=== PATIENT | female | born 1985 | race Caucasian/White ===

== ENCOUNTER 2018-12-31 13:30 | Inpatient (IN) | payer SELFPAY ==
[2018-12-31 14:03] VITALS: BMI 25.4
[2018-12-31 14:17] LABS: Absolute Lymphocyte Count 1.69 X10^3/ul (0.83-4.51); Absolute Neutrophil Count 13.5 X10^3/uL (2.0-7.7); Basophil# 0.02 X10^3/uL; Basophil% 0.1 % (0-1); Eosinophil# 0.05 X10^3/uL; Eosinophils% 0.3 % (0-5); Hematocrit 37.6 % (37-47); Hemoglobin 12.7 g/dl (12.0-15.0); Lymphocyte # 1.69 X10^3/ul (4.0); Lymphocyte % 10.3 % (19-41); Mean Corp Hgb Conc 33.8 g/gl (32-36); Mean Corpuscular Hgb 31.3 pg (27.0-32.0); Mean Corpuscular Volume 92.6 fL (81-99); Mean Platelet Vol. 9.7 fl (6.2-12.0); Monocyte# 1.12 X10^3/uL; Monocyte% 6.8 % (0-10); Neutrophil # 13.54 X10^3/uL (2.7-7.7); Neutrophil % 82.3 % (47-70); Platelet Count 221 K/mm3 (150-450); RBC Distribution Width CV 13.4 % (11.6-14.6); RBC Distribution Width SD 45.3 fl (35.1-43.9); Red Blood Count 4.06 M/mm3 (4.2-5.4); White Blood Count 16.5 K/mm3 (4.4-11.0)
[2018-12-31 14:18] LABS: POSITIVE COUNT NO; POSITIVE DIFFERENTIAL NO; POSITIVE MORPHOLOGY NO
[2018-12-31] MEDS: Lactated Ringers 1,000 ML 50 ML IV (14:19)
[2018-12-31] MEDS: Oxytocin 30 units/NS 500 ml 30 UNITS/500 ML IV.SOLN IV (15:03)
[2018-12-31 15:06] LABS: Rubella IgG 399.3 IU/mL
[2018-12-31 15:46] LABS: HIV - WCH Non-Reactive (Nonreactive); Hepatitis B Surface Antigen Non-Reactive (Nonreactive); Hepatitis C Antibody Non-Reactive (Nonreactive)
[2018-12-31] MEDS: Oxytocin 30 units/NS 500 ml 30 UNITS/500 ML IV.SOLN 334 UNITS IV (16:22)
--- NOTE | 2018-12-31 16:35 | HP.PCM_ITS ---
- Problem List (1) Active labor at term Status: Acute (2) Prolonged labor Status: Acute History Date of Admission: 12/31/18 Final SY: 12/23/18 Final SY Source: US >20 weeks Gestational age: 41 Weeks and 1 Days History of this : This is a 33 year-old, at 41 weeks gestational age presents IAL from care by the computer systems security analyst darrion carrero at a nearby birthing center. she has been 7 cm for most of the day and her labor has stalled, her water had broke at 8 am this morning clear fluid. she is in need of labor augmentation Allergies No Known Allergies Allergy (Verified 12/31/18 14:02) Smoking Status: Never smoker Number of Fetus(es): 1 Heart Tracin moderate variability reactive no decelerations category I tracing [place]: q 15-20 History Past Pregnancies: Past Pregnancies 8 preivous term healthy deliveries Labs: Mom's Labs & Results 12/31/18 12/31/18 12/31/18 13:55 13:55 13:55 WBC 16.5 H RBC 4.06 L Hgb 12.7 Hct 37.6 MCV 92.6 MCH 31.3 MCHC 33.8 RDW 13.4 RDW Differential 45.3 H Plt Count 221 MPV 9.7 Immature Gran % (Auto) 0.200 Neut % (Auto) 82.3 H Lymph % (Auto) 10.3 L [place] % (Auto) 6.8 Eos % (Auto) 0.3 Baso % (Auto) 0.1 Absolute Neuts (auto) 13.5 H Absolute Lymphs (auto) 1.69 Total Counted Not Reportable RPR Hep Bs Antigen Hepatitis C Antibody HIV 1&2 Antibody Rubella IgG Antibody 399.3 Group B Strep DNA Specimen Comment Blood Type O NEGATIVE Antibody Screen NEGATIVE 12/31/18 12/31/18 12/31/18 13:55 13:55 14:45 WBC RBC Hgb Hct MCV MCH MCHC RDW RDW Differential Plt Count MPV Immature Gran % (Auto) Neut % (Auto) Lymph % (Auto) [place] % (Auto) Eos % (Auto) Baso % (Auto) Absolute Neuts (auto) Absolute Lymphs (auto) Total Counted RPR Pending Hep Bs Antigen Non-Reactive Hepatitis C Antibody Non-Reactive HIV 1&2 Antibody Non-Reactive Rubella IgG Antibody Group B Strep DNA Pending Specimen Comment Pending Blood Type Antibody Screen Course Did the patient receive Yes care? Labs Blood Type: O RH: NEGATIVE Rubella status Immune HbSAg Negative Date Done: 12/31/18 Chlamydia Not Done Gonorrhea Not Done HIV/AIDS Non-Reactive Current Obstetrical History Gestational Diabetes No Incompetent Cervix No Infertility No IUGR No Macrosomia No Hypertension/Pre-eclampsia No Placenta Previa/Abruption No PTL/PROM No Uterine anomaly No Oligohydramnios No Polyhydramnios No Multiple gestation No Past Medical History Asthma No Diabetes No Hypertension No Heart disease No Mitral valve prolapse No Neurologic/Seizure disorder/ No Migraines Kidney disease No Liver disease No Varicosities Yes: legs/feet Clotting disorders/Hx of DVT No Thyroid Dysfunction No Other medical diseases No Psychiatric disorders No Major trauma No Abnormal PAP smear No Sleep apnea No Mammogram in the last 2 years No Social History Marital Status: Alleged father Rodrigo Walker Hx Smoking No Smoking Status Never smoker Expected Delivery Method: Spontaneous Vaginal Review of Systems Constitutional: Denies: Fever, Malaise Eyes: Denies: Blurred vision, Vision Change HEENT: Denies: Head Aches, Visual Changes Cardiovascular: Denies: Chest Pain, Palpitations Respiratory: Denies: Cough, Shortness of Breath, Wheezing Gastrointestinal: Denies: Abdominal Pain, Diarrhea, Nausea, Vomiting Genitourinary: Denies: Dysuria, Hematuria Musculoskeletal: Denies: Joint Pain, Muscle pain Skin: Denies: Lesions, Rash Neurological: Denies: Blurred vision, Focal weakness, Headaches Psychiatric: Denies: Anxiety, Depression Endocrine: Denies: Heat/ Cold Intolerance Hematologic/ Lymphatic: Denies: Easy Bruising, Easy Bleeding Physical Exam General: Alert, Cooperative, No apparent distress HEENT: Atraumatic, Normocephalic. Negative for: Thyromegaly, Lymphadenopathy Cardiovascular: Regular rate Lungs: Normal air movement Abdomen: Soft, Non Tender, Gravid Neurological: Deep Tendon Reflexes 2+/4 and Symmetrical, Neuro grossly intact. Negative for: Clonus OFFICE EQUIPMENT TECHNICIAN: Normal external genitalia. Negative for: Vulvar lesions Estimated gestational size: Appropriate for gestational size Presentation: Cephalic Cervix Dilation (cm): 6.5 Assessment/Plan All Active Problems Active labor at term (Acute) Prolonged labor (Acute) This is a 33 year-old, at 41 weeks gestational age presents IAL with prolonged labor plan pitocin for augmentation, forebag ruptured clear fluid.
--- NOTE | 2018-12-31 16:40 | PCM.OPRPT ---
Problem List (1) Active labor at term Status: Acute (2) Prolonged labor Status: Acute Report of Operation Date of Procedure: 12/31/18 Pre-Operative Diagnosis: prolonged labor Post-Operative Diagnosis: same Vaginal Delivery Maternal Presentation: - - prolonged labor 33-year-old G 12 P8 at 41 weeks 1 day presents as a referral from a linoleum layer for prolonged labor. Patient has been in labor since yesterday and had an arrest of dilation at 7 cm. Patient's water broke at 8:00 this morning denies any fevers abdominal pain or foul-smelling discharge. Amniotic Membrane Rupture Type: Spontaneous at home Amniotic Fluid Description: Clear Final SY: 12/23/18 Gestational age: 41 Weeks and 1 Days Date of Procedure: 12/31/18 Pre-Operative Diagnosis: ial Post-Operative Diagnosis: same Surgery/ Procedure Performed: Spontaneous Vaginal Delivery Type of Anesthesia: None Description of Procedure: Patient began pushing and delivered the head in the MIKEL presentation. The head was delivered atraumatically and a loose nuchal cord ?1 was identified and easily reduced over the infant's head. The anterior and posterior shoulders delivered without complication followed by the rest of the and the infant was placed on the maternal abdomen. Delayed cord clamping was employed for approximately 60 seconds. Cord was clamped and cut and gentle traction was applied to the cord and the placenta delivered spontaneously immediately following it was noted to be intact with three-vessel cord. The perineum and vagina were inspected and noted to have no laceration. EBL was 100 cc. Patient and tolerated delivery well. Presentation: MIKEL Placental Delivery Description: Spontaneous Placenta Disposition: [facility] Cord Entanglement: Around neck x 1, loose Estimated Blood Loss: 100 Episiotomy Description: None Laceration: None Medications given after delivery: IV Pitocin Complications: None
[2018-12-31] MEDS: Oxytocin 30 units/NS 500 ml 30 UNITS/500 ML IV.SOLN 167 UNITS IV (16:52)
[2018-12-31 18:01] LABS: Group B Strep DNA By PCR Negative (Negative); Internal Control PASS; Probe Check PASS; Specimen Processing Control PASS
[2018-12-31] MEDS: 0.9% Saline Lock 10 ML Syringe IV (18:38)
[2018-12-31 20:20] VITALS: BP 117/67; PULSE 84; RESP 18; TEMP 37.2
[2018-12-31 23:46] VITALS: BP 111/65; PULSE 72; RESP 16; TEMP 36.8
[2019-01-01 04:00] VITALS: BP 97/60; PULSE 76; RESP 16; TEMP 37.1
[2019-01-01 08:15] VITALS: BP 103/66; PULSE 77; RESP 16; TEMP 36.6
--- NOTE | 2019-01-01 08:43 | PN.OBGYN_ITS ---
Patient Problems: Active and Suspected Problems Active labor at term (Acute) Prolonged labor (Acute) Subjective: doing well no complaints pain controlled no CP SOB N V ambulating well tolerating po lochia moderate, going well - Physical Exam General: Alert, Oriented x3 Abdomen: Soft, Non Tender, Non-Distended, - - FF below U Vital Signs Temp Pulse Resp BP 97.9 F 77 16 103/66 01/01/19 08:15 01/01/19 08:15 01/01/19 08:15 01/01/19 08:15 Oxygen Delivery Method Room Air Weight: 148 lb 9.465 oz Body Mass Index (BMI) 25.4 Intake and Output for Last 24 Hours 12/30/18 12/31/18 01/01/19 23:59 23:59 23:59 Intake Total 819 / 819 Output Total 650 / 650 Balance 169 / 169 Laboratory Tests Past 24 Hrs 12/31/18 12/31/18 12/31/18 13:55 13:55 13:55 WBC 16.5 H RBC 4.06 L Hgb 12.7 Hct 37.6 MCV 92.6 MCH 31.3 MCHC 33.8 RDW 13.4 RDW Differential 45.3 H Plt Count 221 MPV 9.7 Immature Gran % (Auto) 0.200 Neut % (Auto) 82.3 H Lymph % (Auto) 10.3 L [place] % (Auto) 6.8 Eos % (Auto) 0.3 Baso % (Auto) 0.1 Absolute Neuts (auto) 13.5 H Absolute Lymphs (auto) 1.69 Total Counted Not Reportable RPR Hep Bs Antigen Hepatitis C Antibody HIV 1&2 Antibody Rubella IgG Antibody 399.3 Group B Strep DNA Specimen Comment Blood Type O NEGATIVE Antibody Screen NEGATIVE Screen Baby's Blood Type Baby's DIANE 12/31/18 12/31/18 12/31/18 13:55 13:55 14:45 WBC RBC Hgb Hct MCV MCH MCHC RDW RDW Differential Plt Count MPV Immature Gran % (Auto) Neut % (Auto) Lymph % (Auto) [place] % (Auto) Eos % (Auto) Baso % (Auto) Absolute Neuts (auto) Absolute Lymphs (auto) Total Counted RPR Pending Hep Bs Antigen Non-Reactive Hepatitis C Antibody Non-Reactive HIV 1&2 Antibody Non-Reactive Rubella IgG Antibody Group B Strep DNA Negative Specimen Comment Not Reportable Blood Type Antibody Screen Screen Baby's Blood Type Baby's DIANE 12/31/18 17:50 WBC RBC Hgb Hct MCV MCH MCHC RDW RDW Differential Plt Count MPV Immature Gran % (Auto) Neut % (Auto) Lymph % (Auto) [place] % (Auto) Eos % (Auto) Baso % (Auto) Absolute Neuts (auto) Absolute Lymphs (auto) Total Counted RPR Hep Bs Antigen Hepatitis C Antibody HIV 1&2 Antibody Rubella IgG Antibody Group B Strep DNA Specimen Comment Blood Type Antibody Screen Screen NEGATIVE Baby's Blood Type O POSITIVE Baby's DIANE NEGATIVE Medical Necessity - Tobacco Use Smoking Status: Never smoker Assessment/Plan All Active Problems Active labor at term (Acute) Prolonged labor (Acute) s/p PPD # 1 1. routine post delivery care 2. breast feeding- support given 3. rh negative-need rhogam 4. rubella immune 5. home today
--- NOTE | 2019-01-01 08:45 | DCINST_ITS ---
Additional Instructions: If you experience any of the following, contact your healthcare provider. * Bleeding that soaks a pad every hour for 2 hours * Fever 100.4 or higher * Unrelieved incision or abdominal pain * Swelling, redness, discharge or bleeding from your incision or episiotomy site * Your incision begins to separate * Problems urinating (including inability to urinate or burning while urinating). * Visual changes * Severe headache * Flu-like symptoms * Pain or redness in one of both of your breasts * Pain, warmth, tenderness or swelling in your legs, especially the calf area * Frequent nausea and vomiting * Symptoms of depression or anxiety If you experience any of the following, call 911 or go to the nearest Emergency Room. * Chest pain * Problems breathing * Seizure activity * Partial or complete paralysis of a body part, slurred speech, weakness or drooping of the face, or a sudden inability to walk or hold your balance Allergies/Adverse Reactions: Allergies No Known Allergies Allergy (Verified 12/31/18 14:02) Test Results: Test results from this visit will be discussed in further detail at your follow- up appointment, if applicable.
--- NOTE | 2019-01-01 08:45 | PCM.DCVAG ---
Additional Instructions: If you experience any of the following, contact your healthcare provider. Bleeding that soaks a pad every hour for 2 hours Fever 100.4 or higher Unrelieved incision or abdominal pain Swelling, redness, discharge or bleeding from your incision or episiotomy site Your incision begins to separate Problems urinating (including inability to urinate or burning while urinating). Visual changes Severe headache Flu-like symptoms Pain or redness in one of both of your breasts Pain, warmth, tenderness or swelling in your legs, especially the calf area Frequent nausea and vomiting Symptoms of depression or anxiety If you experience any of the following, call 911 or go to the nearest Emergency Room. Chest pain Problems breathing Seizure activity Partial or complete paralysis of a body part, slurred speech, weakness or drooping of the face, or a sudden inability to walk or hold your balance Allergies/Adverse Reactions: Allergies No Known Allergies Allergy (Verified 12/31/18 14:02) Test Results: Test results from this visit will be discussed in further detail at your follow-up appointment, if applicable.
[2019-01-01 12:20] VITALS: BP 100/61; PULSE 81; TEMP 37.1
[2019-01-03 01:18] LABS: Rapid Plasmin Reagin (RPR) NONREACTIVE (NONREACTIVE)
== END 2019-01-01 12:30 | disposition home or self-care (01) | DRG 807 ==
PROVIDERS: Admitting Provider Obstetrics & Gynecology; Referring Provider Obstetrics & Gynecology; Visit Provider Obstetrics & Gynecology
DX: O63.9 Long labor, unspecified (principal); O48.0 Post-term pregnancy; O69.81X0 Labor and delivery complicated by cord around neck, without compression, not applicable or unspecified; Z3A.41 41 weeks gestation of pregnancy; Z37.0 Single live birth
CPT/HCPCS: 59050; 85025; 85461; 86592; 86703; 86762; 86803; 86850; 86900; 87081; 87340; 87653; 90384; 99218; J7120; A4216; G0378; J2790